=== PATIENT | female | born 1950 | race Two or more races ===

== ENCOUNTER → 2020-11-27 | Outpatient (CLI) | payer OTHER ==
[~2020-11-27] MED LIST: AMLO5 PO; CALGLU500; ESTR.625; MULVITMIND; NITR100CA; OMEP20ER
== END | disposition home or self-care (01) ==
LOC: LAB 08:00 → LAB SHORT 08:00
DX: R10.13 Epigastric pain (principal)
CPT/HCPCS: 87338

== ENCOUNTER → 2021-12-13 | Outpatient (CLI) | payer OTHER | END | disposition home or self-care (01) | LOC: LAB 09:50 → LAB SHORT 09:50 | DX: R30.0 Dysuria (principal) | CPT/HCPCS: 87086 ==

== ENCOUNTER → 2021-12-29 | Outpatient (CLI) | payer OTHER | END | disposition home or self-care (01) | LOC: LAB SHORT 17:36 → LAB 17:36 → LAB FUT 12-29 15:30 | DX: R30.9 Painful micturition, unspecified (principal) | CPT/HCPCS: 87086 ==

== ENCOUNTER → 2023-12-21 | Outpatient (CLI) | payer OTHER | END | disposition home or self-care (01) | LOC: LAB SHORT 18:18 → LAB 18:18 | DX: R30.0 Dysuria (principal) | CPT/HCPCS: 87086 ==

== ENCOUNTER → 2024-03-30 | Outpatient (CLI) | payer OTHER | END | disposition home or self-care (01) | LOC: LAB SHORT 17:17 → LAB 17:17 → LAB SHORT 03-31 12:44 | DX: R35.1 Nocturia (principal) | CPT/HCPCS: 87086 ==

== ENCOUNTER → 2025-07-23 | Outpatient (CLI) | payer OTHER ==
[2025-07-23 13:48] LABS: Source, Urine Clean Catch
[2025-07-23 18:53] LABS: Bilirubin, Urine Neg (Neg); Color, Urine Yellow (P-Yellow); Glucose Qualitative, Urine Neg (Neg); Ketones, Urine Neg (Neg); Leukocyte Esterase, Urine Neg (Neg); Protein, Urine Neg (Neg); Specific Gravity, Urine 1.015 (1.003-1.022); Urobilinogen, Urine NORM (Normal)
== END ==
LOC: LAB 13:24 → LAB SHORT 13:24
PROVIDERS: Physician Assistant
DX: R31.29 Other microscopic hematuria (principal)
CPT/HCPCS: 81003